=== PATIENT | male | born 1995 | race Caucasian/White ===

== ENCOUNTER 2017-07-27 18:03 | Emergency (ER) | payer OTHER ==
[~2017-07-27] VITALS: Ht 165.1 cm; Wt 100.2 kg
[2017-07-27 19:23] VITALS: Ht 165.1 cm; Wt 100.2 kg
[2017-07-27 22:11] VITALS: BP 125/86
== END 2017-07-27 22:11 | disposition home or self-care (01) ==
LOC: ED 18:03
DX: J02.9 Acute pharyngitis, unspecified (principal); H66.93 Otitis media, unspecified, bilateral